=== PATIENT | male | born 1995 | race Caucasian/White ===

== ENCOUNTER 2024-01-21 05:54 | Inpatient (IN) | payer OTHER, SELFPAY ==
[2024-01-20 22:47] VITALS: BP 136/84
--- NOTE | 2024-01-21 00:02 | ED.GENMED ---
History of Present Illness
<Erwin López DO - Last Filed: 01/21/24 04:42>
General
Chief Complaint: Eye Problems
Time Seen by Provider: 01/20/24 23:45
<RAVINDRA Shirley - Last Filed: 01/21/24 04:55>
Travel History
Have you had any contact with someone who has COVID-19?: No
Do you have any symptoms of coronavirus? Fever > 100 degrees, chills, cough, shortness of breath, sore throat, loss of taste or smell, muscle aches, or headache?: No
History of Present Illness
History of Present Illness:
28 yo male presenting for L eye redness, tearing, and pain. Worsening over the last day with 4/10 pain. States purulent discharge started a few hours ago, as well as some pain with extraocular movement. States sore throat and congestion started 3
days ago, has taken dayquil and loratadine which he states has not helped. Was asked about possible sources of infection, states he was moving wood out of truck this weekend and suspects dirt/sawdust may have gotten into his eye.
If applicable-neuro sx onset
Onset of symptoms known: Yes
Date of onset of symptoms: 01/20/24
Past History
<RAVINDRA Shirley - Last Filed: 01/21/24 04:55>
Past History
ED Past Medical History: None
Patient has exhibited threatening behavior?: No
Social History
Tobacco: Non-smoker
Alcohol: Occasional
Drug: None
Family History
Family History: Other
Review of Systems
<RAVINDRA Shirley - Last Filed: 01/21/24 04:55>
Review of Systems
Allergies reviewed?: Yes
EENT: Reports tearing, sore throat and runny nose
Respiratory: Reports no symptoms
Cardiac: Reports no symptoms
ABD/GI: Reports no symptoms
Skin: Reports no symptoms
Neurological: Reports no symptoms
Psychiatric: Reports no symptoms
Phy Exam
<ST CasperPA - Last Filed: 01/21/24 04:55>
General Physical Exam
General Presentation: well appearing
General age: appears stated age
General Habitus: normal
General Mental: alert
General Hydration: appears well hydrated
ENT Exam
ENT Exam: EOMI
Eye Exam
Eye Exam: PERRL and EOMI
Eye Exam General: PERRL: bilateral and EOM intact: bilateral
Conjunctival Changes: left: purulent discharge
Eyelid Exam: red and inflamed: Left, edematous: Left and painful to palpate: Left
Cardiovascular Exam
Cardiovascular Exam: regular rate/rhythm
Pulmonary Exam
Pulmonary Exam: lungs clear
Course
<Erwin López DO - Last Filed: 01/21/24 04:42>
Orders/Labs/Results
Orders:
Orders
01/21/24 00:17
CT Orbits With Iv Contrast Urgent
Comment:
Reason For Exam: lefrt eye pain/swelling pain with mvmt
01/21/24 00:36
Visual Acuity- Treatment ONCE
01/21/24 01:34
Tetracaine HCl [Tetracaine 0.5% Ophthalmic Solution] 1 drop .ROUTE .STK-MED ONE
01/21/24 02:58
Gentamicin [Genoptic 0.3% Eye Drops] 1 drop .ROUTE .STK-MED ONE
Piperacillin/Tazo 3.375 Gram [Zosyn] 3.375 gram in 50 ml .ROUTE .STK-MED
01/21/24 03:23
Piperacillin/Tazo 4.5 Gram [Zosyn] 4.5 gram in 100 ml .ROUTE .STK-MED
01/21/24 03:56
Dexamethasone Pf [Decadron] 10 mg .ROUTE .STK-MED ONE
01/21/24 04:02
Clindamycin 600 mg/50 ml [Cleocin] 600 mg in 50 ml IV ONCE
01/21/24 04:35
Vancomycin [Vancocin] 2,000 mg 0.9% Sodium Chloride 500 ml [Nss] 500 ml IV NOW
01/21/24 05:00
Flush (0.9% Sodium Chloride) [Flush (Nss)] See Dose Instructions IV PER PROTOCOL
Vital Signs
Initial and Last Documented VS:
Initial Vital Signs
Temp Pulse Resp BP Pulse Ox
98 F 76 22 136/84 98
01/20/24 22:47 01/20/24 22:47 01/20/24 22:47 01/20/24 22:47 01/20/24 22:47
Last Documented Vital Signs
Temp Pulse Resp BP Pulse Ox
98 F 76 22 136/84 98
01/20/24 22:47 01/20/24 22:47 01/20/24 22:47 01/20/24 22:47 01/20/24 22:47
<RAVINDRA Shirley - Last Filed: 01/21/24 04:55>
Orders/Labs/Results
Orders:
Orders
01/21/24 00:17
CT Orbits With Iv Contrast Urgent
Comment:
Reason For Exam: lefrt eye pain/swelling pain with mvmt
01/21/24 00:36
Visual Acuity- Treatment ONCE
01/21/24 01:34
Tetracaine HCl [Tetracaine 0.5% Ophthalmic Solution] 1 drop .ROUTE .STK-MED ONE
01/21/24 02:58
Gentamicin [Genoptic 0.3% Eye Drops] 1 drop .ROUTE .STK-MED ONE
Piperacillin/Tazo 3.375 Gram [Zosyn] 3.375 gram in 50 ml .ROUTE .STK-MED
01/21/24 03:23
Piperacillin/Tazo 4.5 Gram [Zosyn] 4.5 gram in 100 ml .ROUTE .STK-MED
01/21/24 03:56
Dexamethasone Pf [Decadron] 10 mg .ROUTE .STK-MED ONE
01/21/24 04:02
Clindamycin 600 mg/50 ml [Cleocin] 600 mg in 50 ml IV ONCE
01/21/24 04:35
Vancomycin [Vancocin] 2,000 mg 0.9% Sodium Chloride 500 ml [Nss] 500 ml IV NOW
01/21/24 05:00
Flush (0.9% Sodium Chloride) [Flush (Nss)] See Dose Instructions IV PER PROTOCOL
Vital Signs
Initial and Last Documented VS:
Initial Vital Signs
Temp Pulse Resp BP Pulse Ox
98 F 76 22 136/84 98
01/20/24 22:47 01/20/24 22:47 01/20/24 22:47 01/20/24 22:47 01/20/24 22:47
Last Documented Vital Signs
Temp Pulse Resp BP Pulse Ox
98 F 76 22 136/84 98
01/20/24 22:47 01/20/24 22:47 01/20/24 22:47 01/20/24 22:47 01/20/24 22:47
<RAVINDRA Shirley - Last Filed: 01/21/24 04:55>
MDM/Problems Addressed
Differential Diagnosis Includes:
Bacterial conjunctivitis, viral conjunctivitis, preseptal cellulitis, corneal abrasion
MDM/Problems Addressed:
1.������ Bacterial conjunctivitis
a.������ Red conjunctiva, purulent drainage
b.������ Clindamycin and gentamycin drops
2.������ Viral conjunctivitis
a.������ History of URI in last few days, red conjunctiva
3.������ Preseptal cellulitis
a.������ Red, swollen periorbital region
4.������ Orbital cellulitis
a.������ Pain with eye movement
b. Orbital CT: small amount of fluid along lateral margin of globe. In addition to L eye conjunctivitis.
c. Admitted for IV clindamycin
d. Topical gentamycin drops
5.������ Corneal abrasion
a.������ Fluourescein eye exam negative
<RAVINDRA Shirley - Last Filed: 01/21/24 04:55>
*Critical Care Note
Total Time (30-74mins, 75-104mins- exclusive of procedures): Not Applicable
<Erwin López DO - Last Filed: 01/21/24 04:42>
Update Note
Update Note:
TT dr mcdonald. Pt to be adnmitted for suspected orbital cellulitis. IV abx started
ED Attending Note
<Erwin López DO - Last Filed: 01/21/24 04:42>
ED Attending Note
Patient seen and examined by attending physician: Yes
I performed the substantive portion of visit, reviewed & personally made and approve the management plan that is documented in note by myself or CHAPINCITO.: Yes
ED Attending Note:
This a pleasant 28-year-old male who presents with left eye redness, tearing, and pain. He states that this has been going on for the last 2 days but today it has worsened. He does report some minimal pain with left eye movement. He did have some
discharge and matting. Patient was sick over the weekend with sore throat and nasal congestion. He has been on [id number]-[id number] medications which have not helped. Patient denies any sick contacts. Reports no other injury. Patient was seen in
conjunction with the PA student. I have reviewed and agree with the history and treatment plan presented. On my independent physical exam, patient is awake, alert, and oriented x3 minimal acute distress. Left eye is erythematous and slightly
swollen. There is some discharge.
<RAVINDRA Shirley - Last Filed: 01/21/24 04:55>
-
Portions of this chart may have been created with voice recognition software.� Occasional wrong word or��sound alike� substitutions may have occurred due to the inherent limitations of voice recognition software.
Discharge Plan
Departure
Patient Disposition: Admit
Date of Disposition: 01/21/24
Time of Disposition: 02:00
Presentation/result/management discussed w/ accepting MD/DO: Hospitalist
Discharge Problem:
pinkeye
Instructions: Conjunctivitis (Pinkeye) (DC), How to Use Eye Drops, BLOOD PRESSURE
Referrals:
[facility] [Outside]
NONE,* [Family Provider] -
Activity Restrictions/Additional Instructions:
It was a pleasure meeting you and taking part in your care. We hope for your continued healing and wellness.
Please read discharge instructions in their entirety. However, they are for general education and may not describe your exact diagnosis at discharge. Information on your ER visit and medical conditions were discussed with you along with appropriate
follow up information...
If indicated, please take your medications as instructed and indicated on discharge paperwork.
Please schedule a follow up appointment as directed. Call to schedule an appointment
Please return to the emergency department with ANY change in, persisting, or worsening of symptoms. If any of your symptoms do not improve, or persist, or become more severe within 6-12 hours, please return to the emergency department for further
care.
Please return to the emergency department if you develop a headache, neck pain/stiffness, fever greater than 100.4F, chest pain, shortness of breath, persistent nausea, vomiting, slurred speech, difficulty walking, numbness/tingling, weakness, signs
of infection or any other symptoms that are worrisome to you.
If you have any questions or concerns please do not hesitate to call the Hospital at or E-mail me directly at [email or web address]
Interventions
Interventions:
*Risk Screen - Suicide Last Done: 01/20/24 22:47
*General Assessment Last Done: 01/21/24 00:51
*Neglect/Abuse Screening Last Done: 01/20/24 22:47
ED- Fall Risk Assessment Last Done: 01/21/24 00:52
Discharge Date and Time
Print Language: BELARUSIAN
[2024-01-21] MEDS: CLEOCIN 50 IV ×2 (04:40→12:57)
--- NOTE | 2024-01-21 04:45 | DOWNTIME ---
There was a [employer] Downtime on 01/21/2024 from 0100 to 01/21/2024 at 0439. Downtime documentation of patient's care, including medication administrations, has been reconciled in the electronic record per guidelines. Refer to the
patient's paper chart under the miscellaneous tab to see printed paper medication records and downtime forms.
--- NOTE | 2024-01-21 04:54 | HPS.HSE ---
Family Physician
-
Family Physician: * NONE
Chief Complaint
-
swollen Lt eye with pain and redness
History of Present Illness
HPI
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
Swollen Lt eye with pain and redness:
- onset of nasal congestion with body aches on last Friday
- took OTC meds but no significant relief
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
- yesterday noted swollen Lt eye with discharge, red and congested Lt Eye
- denied trauma
- associated retro orbital pain with Rt lateral and downward gaze
- no change in vision
ROS
denied fever.
denied [place]
Medical History
Past Medical History
Past Medical History: Reports None
Past Surgical History: Reports None
Social History
Tobacco: Non-smoker
Alcohol: None
Drug: None
Personal: Single
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
Family History
Family History: Not pertinent
Allergies / Home Medications
Allergies reflects when Allergies were last updated in [facility].
Home Medications with original date entered in [facility]
Allergy/Medication List:
Allergies
Allergy/AdvReac Type Severity Reaction Status Date / Time
No Known Allergies Allergy Verified 01/20/24 22:51
Not on any meds
Review of Systems
-
Constitutional: Reports No Symptoms
EENT: Reports See HPI and Other ( swollen Lt eye with pain and redness: )
Respiratory: Reports No Symptoms
Cardiac: Reports No Symptoms
Abdomen/GI: Reports No Symptoms
: Reports No Symptoms
Musculoskeletal: Reports No Symptoms
Skin: Reports No Symptoms
Neurological: Reports No Symptoms
Endocrine: Reports No Symptoms
Hematologic/Lymphatic: Reports No Symptoms
Psych: Reports No Symptoms
Physical Exam
Vital Signs
Vital Signs
Temp Pulse Resp BP Pulse Ox
98 F 76 22 136/84 98
01/20/24 22:47 01/20/24 22:47 01/20/24 22:47 01/20/24 22:47 01/20/24 22:47
Physical Exam
General: Well Developed, Well Nourished, No Apparent Distress, Comfortable, Conversant and Other ( swollen Lt eye with pain and redness: closed, ++ discharges, red conjunctiva at rim, ESSENCE, periorbital edema. )
HEENT: NormoCephalic and Other (Lt eye closed, ++ discharges, red conjunctiva at rim, ESSENCE, periorbital edema. )
Respiratory: Clear
Cardiac: S1/S2 and Regular Rhythm
Breast: Deferred by me
GI: Soft, Non Tender, Non Distended and Normal Bowel Sounds
Musculoskeletal: No Edema
Skin: Warm and Dry
Neuro: Awake and AO x 3
Psych: Calm
Data Reviewed
-
CT Scan: Report Reviewed by me
Impression/Plan
-
Reviewed VS: Afebrile
Vital Signs
Temp Pulse Resp BP Pulse Ox
98 F 76 22 136/84 98
01/20/24 22:47 01/20/24 22:47 01/20/24 22:47 01/20/24 22:47 01/20/24 22:47
Data
Pending report due to [facility] down time
CT Lt Eye with IV Contrast
Acute Lt conjunctivitis with periorbital swelling
small fluid tracking into Lt lateral margin of globe
No post septal inflammatory changes
ASSESSMENT & PLAN
Acute Lt conjunctivitis with periorbital swelling
Clinically suspect retroorbital cellulitis
CT report as above
- Empiric IV Clindamycin 600mg q8
- IV Decadron 2mg q12H
- Tylenol PRN
- Per ER attd consult texted Safety Aide
DVT Px: SCD
Code: Full code
IP MS
Case dw ER attd and patient
[2024-01-21 07:00] VITALS: BP 154/70
[2024-01-21 07:45] VITALS: BP 154/82
[2024-01-21] MEDS: DECADRON 2 MG IV ×2 (09:45→20:42)
[2024-01-21 10:51] LABS: Hematocrit 46.2 % (39.0-52.0); Mean Corp Hgb Conc. 34.6 g/dL (33.0-37.0); Mean Corpuscular Hgb 28.7 pg (27.0-31.0); Mean Corpuscular Volume 82.9 fL (80.0-94.0); Mean Platelet Volume 10.2 fL (7.4-10.4); Platelet Count 210 10^3/uL (130-400); Red Blood Cell Count 5.57 10^6/uL (4.70-6.10); Red Cell Dist. Width 11.6 % (11.5-14.5); White Blood Cell Count 7.9 10^3/uL (4.8-10.8)
[2024-01-21 10:59] LABS: INR 1.03; PT 13.5 Sec (11.4-14.6)
[2024-01-21 11:02] LABS: ALT (SGPT) 61 U/L (0-50); AST (SGOT) 30 U/L (17-59); Albumin 5.3 g/dl (3.5-5.0); Alkaline Phosphatase 105 U/L (38-126); Blood Urea Nitrogen 13 mg/dl (9-20); Calcium 10.5 mg/dl (8.4-10.2); Carbon Dioxide 26 mmol/L (22-30); Chloride 104 mmol/L (98-107); Glucose 159 mg/dl (70-99); Sodium 140 mmol/L (135-145); Total Bilirubin 1.9 mg/dl (0.2-1.3); Total Protein 8.3 g/dl (6.3-8.2); eGFR > 60.00
[2024-01-21 12:00] VITALS: BP 131/76
--- NOTE | 2024-01-21 12:59 | PHA.VAN.IN ---
Assessment
- Assessment
Renal Function: Unknown baseline
Concomitant Antimicrobials: ampicillin/sulbactam
Plan
- Plan
Initial / Loading Dose: 2000mg - 01/20 04:00
Maintenance Regimen: dosing by level
Monitoring: random 01/21 0600
Will give dose by level for now to trend level more closely with weight and possibly slightly elevated SCR
Give 1000mg Q8H x2 doses at 1400 and 2200
Holding off on scheduling further dosing until can trend levels
Pharmacokinetics Vancomycin I
- -
Patient Age: 28
Patient Sex: Male
Vancomycin Day #: 1
Indication: Eye Or Ent Infection
Requesting Provider: Dr. Monsalve
Pertinent Antimicrobial Allergies:
NKDA
Height / Weight:
Actual Weight 124 kg
- Vital Signs / Lab Results
Temp Pulse Resp BP Pulse Ox
98.5 F 76 16 154/82 98
01/21/24 07:45 01/21/24 07:45 01/21/24 07:45 01/21/24 07:45 01/21/24 07:45
Lab Results - Hematology
01/21/24
10:39
WBC 7.9
Lab Results - Chemistry
01/21/24
10:39
BUN 13
Creatinine 1.1
Albumin 5.3 H
[2024-01-21] MEDS: CILOXAN 0.3% OPHTHALMIC SOLUTION 1 DROP LEFT EYE ×3 (14:26→21:58)
[2024-01-21] MEDS: UNASYN IV ×2 (14:29→20:42)
--- NOTE | 2024-01-21 15:04 | W.PN.UPDATE ---
Update Note
Progress Note Update
Nonbillable note
Chart reviewed
Seen and examined
Left eye preorbital cellulitis
-CT orbit rule out any extraocular muscle swelling/fluid collection
-Likely starting from from sinusitis
-No sign of systemic sepsis
-Adjust antibiotics to vancomycin and Unasyn
-Ciprofloxacin eyedrops ordered
-Ophthalmology evaluation pending today
[2024-01-21] MEDS: VANCOCIN 200 IV ×2 (15:31→21:58)
[2024-01-21 16:00] VITALS: BP 139/78
[2024-01-21 17:40] VITALS: BP 158/90
[2024-01-21 17:46] VITALS: BMI 33.9
--- NOTE | 2024-01-21 18:45 | PTCARENOTE ---
Patient received to [facility] awake and alert. Left eye pink , outer eye red. C/o constant ache, refused any pain med. Mom visiting at present .
[2024-01-21 23:11] VITALS: BP 123/72
[2024-01-22] MEDS: UNASYN IV ×2 (02:44→11:11)
[2024-01-22] MEDS: CILOXAN 0.3% OPHTHALMIC SOLUTION 1 DROP LEFT EYE ×3 (02:45→09:47)
[2024-01-22 07:37] LABS: Hematocrit 43.6 % (39.0-52.0); Hemoglobin 14.6 g/dL (13.0-18.0); Mean Corp Hgb Conc. 33.5 g/dL (33.0-37.0); Mean Corpuscular Hgb 28.5 pg (27.0-31.0); Mean Corpuscular Volume 85.2 fL (80.0-94.0); Mean Platelet Volume 10.4 fL (7.4-10.4); Platelet Count 213 10^3/uL (130-400); Red Blood Cell Count 5.12 10^6/uL (4.70-6.10); Red Cell Dist. Width 11.7 % (11.5-14.5); White Blood Cell Count 12.4 10^3/uL (4.8-10.8)
[2024-01-22 07:48] LABS: Vancomycin Random 8.2 ug/ml
[2024-01-22 07:51] LABS: Blood Urea Nitrogen 15 mg/dl (9-20); Calcium 9.5 mg/dl (8.4-10.2); Carbon Dioxide 27 mmol/L (22-30); Chloride 105 mmol/L (98-107); Estimated Creatinine Clearance > 125 ml/min; Glucose 123 mg/dl (70-99); Potassium 4.6 mmol/L (3.5-5.1); Sodium 137 mmol/L (135-145); eGFR > 60.00
--- NOTE | 2024-01-22 09:32 | PHA.VAN.FU ---
Vancomycin Assessment / Plan
- Assessment
Renal Function: Stable
WBC's are: Trending Up
In the past 24 hrs, patient has been: Afebrile
Concomitant Antimicrobials: ampicillin/sulbactam
- Assessment - Therapeutic Drug Monitoring
Random Level: 8.2 - drawn ~9H after 2nd dose of 1000mg
- Dosing Plan
Adjust Regimen to: Vanc 1250mg Q8H
New Regimen Predicts: AUC (435), Peak (25.1), Trough (12.4)
Patient appears to be clearing appropriately - will trial higher dosing given subtherapeutic pre-steady state level with 1g Q8
Patient may be slow to accumulate and may still eventually require interval change to Q12H dosing
- Monitoring Plan
No level(s) ordered at this time: consider levels following 01/22 2200 dose
- Follow Up
Pharmacy will continue to follow.
Vancomycin Follow UP
- -
Patient Age: 28
Patient Sex: Male
Vancomycin Day #: 2
Indication: Eye Or Ent Infection
Requesting Provider: Dr. Monsalve
Pertinent Antimicrobial Allergies:
NKDA
Height / Weight:
Height 6 ft 3 in
Actual Weight 123.15 kg
Pertinent Past Medical History: BMI ~34
- Vital Signs / Lab Results
Temp Pulse Resp BP Pulse Ox
97.9 F 65 18 123/72 98
01/21/24 23:11 01/21/24 23:11 01/21/24 23:11 01/21/24 23:11 01/21/24 23:11
Lab Results - Hematology
01/21/24 01/22/24
10:39 06:54
WBC 7.9 12.4 H
Lab Results - Chemistry
01/21/24 01/22/24
10:39 06:54
BUN 13 15
Creatinine 1.1 1.1
Estimated Creat Clear > 125
Albumin 5.3 H
Therapeutic Drug Monitoring
Random Vancomycin 8.2 ug/ml 01/22/24 06:54
[2024-01-22 09:45] VITALS: BP 130/73
[2024-01-22] MEDS: VANCOCIN 200 IV (09:46)
[2024-01-22] MEDS: DECADRON 2 MG IV (09:46)
--- NOTE | 2024-01-22 11:12 | W.PN.HOSP.TC ---
Today's Communication/Plan
-
d/c home
Assessment / Plan
Assessment / Plan
Left eye preorbital cellulitis
-CT orbit rule out any extraocular muscle swelling/fluid collection
-Likely starting from from sinusitis
-No sign of systemic sepsis
-Adjust antibiotics to vancomycin and Unasyn
-Ciprofloxacin eyedrops ordered
-Ophthalmology evaluated and recommended to f/u in office post discharge
-Swelling better/conjunctivitis improved as well, will be discharging on 5 days of cefdinir and cipro eye drops
Full code
More than 30 minutes spent in discharge including
Final examination of the patient
Summarizing hospital stay
Instructions for continuing care to all relevant caregivers
Preparation of discharge records, prescriptions, and referral forms
Total time spent (in minutes): 38 mins
Anticipated Discharge: Today
Subjective/Interval History
-
Date of Service: January 22, 2024
pain in left eye is better
swelling down
Objective Data
-
Labs:
Laboratory Results
01/22/24
06:54
WBC 12.4 H
Hgb 14.6
Hct 43.6
Plt Count 213
Sodium 137
Potassium 4.6
Chloride 105
Carbon Dioxide 27
BUN 15
Creatinine 1.1
Glucose 123 H
Calcium 9.5
Vital Signs:
Vital Signs
Temp Pulse Resp BP Pulse Ox
97.8 F 66 20 130/73 98
01/22/24 09:45 01/22/24 09:45 01/22/24 09:45 01/22/24 09:45 01/22/24 09:45
I&O
01/21/24 01/22/24 01/23/24
06:59 06:59 06:59
Intake Total 960 / 960
Balance 960 / 960
Review of Systems
-
Respiratory: Reports No Symptoms
Cardiac: Reports No Symptoms
Abdomen/GI: Reports No Symptoms
Physical Exam
-
General: No Apparent Distress and Comfortable
HEENT: Other (Left eye conjunctival erythema, swelling around the left eye); Negative Oxygen
Respiratory: Clear to Auscultation
Cardiac: Regular Rhythm and S1/S2; Negative Murmur or Rub
GI: Soft, Nontender, Nondistended and Normal Bowel Sounds
Musculoskeletal: No Edema
Neuro: Awake, Alert, Oriented, No Motor Deficits and Nonfocal/Grossly Intact
Psych: Calm
--- NOTE | 2024-01-22 12:01 | CM ---
Patient seen bedside.
IA completed.
Patient lives alone in 8th floor apartment.
Elevator access.
Drives and works.
Independent prior to admission.
Pharmacy: [address]
Plan; home no needs.
--- NOTE | 2024-01-22 17:08 | W.DCSUMMARY ---
Discharge Summary
Discharge Data
Date of Admission: 01/21/24
Date of Discharge: 01/22/24
-
Pending Results: No
Hospital Course
Discharging Physician : Dr Andre Monsalve
Disposition : Home
Primary care physician : None
Principal Discharge diagnosis :
Left eye preseptal cellulitis
Chronic Discharge diagnosis :
None
Hospital Course :
Patient is a 28-year-old male with no signal past medical history came to ER for having new onset of left eye redness and surrounding skin swelling and pain. Patient had initial symptoms of sinusitis/nasal congestion for which patient took
ukyx-ini-nmdeehj medication. Patient later started noticing conjunctival suffusion and excessive lacrimation. Patient was also having retro-orbital pain on movement. No reported fever. In ER clinically there was concern of patient having
periorbital versus orbital cellulitis and a CT orbit was done which ruled out any ocular muscle inflammation/soft tissue swelling or abscesses. Patient was started on broad-spectrum antibiotic and ophthalmology was consulted for further help.
Patient had rapid improvement of symptoms within 48 hours. Ophthalmology recommended for patient to follow-up in office if any further problems. Patient was provided short prescription of antibiotic and eyedrops to use at home.
Important imaging findings :
None
Procedure findings :
None
Discharge Plan
-
Patient Disposition: Home (Routine Discharge)
Discharge Diagnosis/Procedures: left eye preorbital cellulitis
Condition: Fair
Diet: Regular
Activity: As tolerated
Driving Restrictions: As prior to admission
Bathing Restrictions: OK to Shower
Referrals:
Anu Mendoza MD [Active] - in one week
NONE,* [Family Provider] -
Prescriptions:
New
cefdinir 300 mg capsule
300 mg PO BID Qty: 10 0RF
ciprofloxacin HCl 0.3 % drops
1 drp ophthalmic (eye) Q4H 5 Days Qty: 5 0RF
Discharge Orders:
Discharge Patient (As Directed); Ordered 01/22/24
Ordered By: Andre Monsalve
Discharge Date and Time
Discharge Date/Time: 01/22/24 12:01
Print Language: NEPALI
== END 2024-01-22 12:01 | disposition home or self-care (01) | DRG 603 ==
LOC: 4 WEST ACU 05:54
PROVIDERS: ADMITTING PHYSICIAN Internal Medicine; ATTENDING PHYSICIAN Hospitalist; CONSULT PHYSICIAN Ophthalmology; EMERGENCY PHYSICIAN Student in an Organized Health Care Education/Training Program
DX: L03.213 Periorbital cellulitis (principal); J01.90 Acute sinusitis, unspecified; H10.32 Unspecified acute conjunctivitis, left eye
CPT/HCPCS: 70481; 80048; 80053; 80202; 85027; 85610; 96365; 99285; Q9967